=== PATIENT | male | born 1955 | race Caucasian/White ===

== ENCOUNTER 2016-08-03 11:26 | Emergency (ER) | payer OTHER ==
[~2016-08-03] VITALS: Ht 175.3 cm; Wt 90.5 kg
[~2016-08-03 11:26] MED LIST: CLON.5 PO; METH10 PO
[2016-08-03] MEDS ORDERED: NALOXONE HCL 1 MG/ML 2 ML SYG IVP ONE (11:45)
[2016-08-03] MEDS ORDERED: DEXTROSE 50%-WATER 25 GM/50 ML SYRINGE IVP ONE ×2 (11:45→13:15)
[2016-08-03] MEDS ORDERED: SODIUM CHLORIDE 0.9% 1,000 ML IV ONE (11:45)
[2016-08-03 13:12] LABS: GLUCOSE,POINT OF CARE 68 MG/DL (70-110)
[2016-08-03] MEDS ORDERED: DEXTROSE 5%-0.45% SODIUM CHL 1,000 ML IV ONE (13:15)
[2016-08-03 13:37] LABS: GLUCOSE,POINT OF CARE 133 MG/DL (70-110)
[2016-08-03 15:12] LABS: GLUCOSE,POINT OF CARE 116 MG/DL (70-110)
[2016-08-03 15:57] LABS: BASOPHILS # (AUTO) 0.02 K/uL (0.00-0.20); BASOPHILS % (AUTO) 0.2 % (0.0-2.0); EOSINOPHILS # (AUTO) 0.07 K/uL (0.00-0.70); EOSINOPHILS % (AUTO) 0.79 % (1.0-6.0); HEMOGLOBIN 13.7 g/dL (13.5-17.5); LYMPHOCYTES # (AUTO) 0.8 K/uL (1.0-4.8); MEAN CORPUSCULAR HGB CONC 34.2 G/dL (31.0-37.0); MEAN CORPUSCULAR VOLUME 91 fL (80-100); MONOCYTES # (AUTO) 0.4 K/uL (0.1-1.0); MONOCYTES % (AUTO) 4.3 % (2.0-9.0); NEUTROPHILS % (AUTO) 84.8 % (40.0-70.0); PLATELET COUNT (AUTO) 237 K/uL (150-450); RED CELL DISTRIBUTION WIDTH 12.8 % (11.5-14.5); WHITE BLOOD COUNT (AUTO) 8.3 K/uL (4.5-11.0)
[2016-08-03 16:08] LABS: ANION GAP 10 mmol/L (8-16); CALCIUM, TOTAL 8.5 mg/dL (8.8-10.5); CARBON DIOXIDE 28 mmol/L (22-29); CHLORIDE 105 mmol/L (98-107); CREATININE 1.06 mg/dL (0.60-1.30); GLOMERULAR FILTR. RATE CALC > 60 mL/min (>60); POTASSIUM 3.1 mmol/L (3.5-5.1); SODIUM SERUM 143 mmol/L (136-145); UREA NITROGEN, BLOOD 16 mg/dL (7-18)
[2016-08-03 16:11] LABS: SALICYLATE < 2.8 mg/dL (2.8-20.0)
[2016-08-03 16:24] LABS: ACETAMINOPHEN < 2 mcg/mL (10-30)
[2016-08-03 17:25] VITALS: BP 133/74
[2016-08-03 17:41] LABS: GLUCOSE COMMENT 1 Doctor Notified; GLUCOSE,POINT OF CARE 75 MG/DL (70-110)
== END 2016-08-03 18:07 | disposition home or self-care (01) ==
LOC: EMS 11:28
DX: R41.82 Altered mental status, unspecified (principal); F11.10 Opioid abuse, uncomplicated; F15.10 Other stimulant abuse, uncomplicated; F41.9 Anxiety disorder, unspecified; I10 Essential (primary) hypertension; F10.20 Alcohol dependence, uncomplicated; Y90.9 Presence of alcohol in blood, level not specified; Z59.0 Homelessness; Z86.19 Personal history of other infectious and parasitic diseases; Z79.899 Other long term (current) drug therapy
CPT/HCPCS: 36415; 80048; 80307; 82962; 85025; 93005; 96361; 96374; 96375; 96376; 99285; G0480 ×2; G0481; J2310; J7030; X7700

== ENCOUNTER 2019-04-05 05:16 | Inpatient (IN) | payer MEDICARE, OTHER ==
[~2019-04-05] VITALS: Ht 170.2 cm; Wt 73.5 kg
[2019-04-05 05:51] LABS: GLUCOSE,POINT OF CARE 72 MG/DL (70-110)
[2019-04-05 06:30] LABS: AMPHET/METH SCREEN,URINE NEGATIVE (NEGATIVE); BARBITURATE SCREEN, URINE NEGATIVE (NEGATIVE); BENZODIAZEPINES SCREEN,URINE NEGATIVE (NEGATIVE); CANNABINOID SCREEN,URINE NEGATIVE (NEGATIVE); COCAINE SCREEN,URINE NEGATIVE (NEGATIVE); METHADONE SCREEN, URINE POSITIVE (NEGATIVE); OPIATE SCREEN,URINE NEGATIVE (NEGATIVE); PHENCYCLIDINE SCREEN,URINE NEGATIVE (NEGATIVE)
[2019-04-05 06:37] LABS: BASOPHILS % (AUTO) 0.9 % (0.0-2.0); EOSINOPHILS % (AUTO) 3.1 % (1.0-6.0); HEMATOCRIT 40.9 % (41-53); HEMOGLOBIN 13.8 g/dL (13.5-17.5); LYMPHOCYTES # (AUTO) 0.9 K/uL (1.0-4.8); LYMPHOCYTES % (AUTO) 14.7 % (22.0-44.0); MEAN CORPUSCULAR HEMOGLOBIN 31.1 pg (26.0-34.0); MEAN CORPUSCULAR HGB CONC 33.6 G/dL (31.0-37.0); MEAN CORPUSCULAR VOLUME 93 fL (80-100); MONOCYTES # (AUTO) 0.5 K/uL (0.1-1.0); NEUTROPHILS # (AUTO) 4.6 K/uL (1.8-7.7); NEUTROPHILS % (AUTO) 73.3 % (40.0-70.0); PLATELET COUNT (AUTO) 314 K/uL (150-450); RED BLOOD CELL COUNT(AUTO) 4.43 MIL/uL (4.50-5.90); RED CELL DISTRIBUTION WIDTH 13.6 % (11.5-14.5)
[2019-04-05 06:50] LABS: ANION GAP 2 mmol/L (8-16); CALCIUM, TOTAL 8.9 mg/dL (8.8-10.5); CARBON DIOXIDE 33 mmol/L (22-29); CHLORIDE 103 mmol/L (98-107); CREATININE 0.83 mg/dL (0.60-1.30); GLOMERULAR FILTR. RATE CALC > 60 mL/min (>60); GLUCOSE,RANDOM 107 mg/dL (70-110); POTASSIUM 4.4 mmol/L (3.5-5.1); SODIUM SERUM 138 mmol/L (136-145); UREA NITROGEN, BLOOD 18 mg/dL (7-18)
[2019-04-05 06:55] LABS: ALANINE AMINOTRANSFERASE 44 U/L (12-78); ALBUMIN 3.5 g/dL (3.4-5.0); ALKALINE PHOSPHATASE 128 U/L (46-116); ASPARTATE AMINOTRANSFERASE 48 U/L (15-37); BILIRUBIN,TOTAL 0.3 mg/dL (0.1-1.0); TOTAL PROTEIN, SERUM 8.1 g/dL (6.4-8.2)
[2019-04-05] MEDS ORDERED: ONDANSETRON HCL 4 MG/2 ML VIAL IVP PRN ×2 (09:30→20:00)
[2019-04-05] MEDS ORDERED: ACETAMINOPHEN 325 MG TABLET PO PRN ×2 (09:30→20:00)
[2019-04-05 15:41] VITALS: BP 137/74
[2019-04-05 19:56] VITALS: BP 139/67
[2019-04-05] MEDS ORDERED: ZOLPIDEM TARTRATE 5 MG TABLET PO PRN (20:00)
[2019-04-05] MEDS ORDERED: MAGNESIUM HYDROXIDE SUSPENSION 30 ML UDCUP PO PRN (20:00)
[2019-04-05] MEDS ORDERED: MORPHINE SULFATE 2 MG/ML SYRINGE IVP PRN (20:00)
[2019-04-05] MEDS ORDERED: HYDROCODONE/ACETAMINOPHEN 5-325 MG TABLET PO PRN (20:00)
[2019-04-05] MEDS ORDERED: BISACODYL 10 MG RECTAL RECTAL SUPPOSITORY PR PRN (20:00)
[2019-04-05] MEDS ORDERED: SODIUM CHLORIDE 0.9% 500 ML IV ONE (20:11)
[2019-04-05] MEDS: DOCUSATE SODIUM 100 MG CAPSULE PO SCH (20:35)
[2019-04-05] MEDS: TAMSULOSIN HCL 0.4 MG CAPSULE PO SCH (20:36)
[2019-04-05] MEDS: HEPARIN SODIUM,PORCINE 5,000 UNITS/ML VIAL SQ SCH (23:38)
[2019-04-05 23:54] LABS: APPEARANCE,URINE CLOUDY (CLEAR); BILIRUBIN,URINE NEGATIVE (NEGATIVE); GLUCOSE, URINE (UA) NEGATIVE (NEGATIVE); KETONES,URINE NEGATIVE (NEGATIVE); LEUKOCYTE ESTERASE ,URINE NEGATIVE (NEGATIVE); NITRATE,URINE NEGATIVE (NEGATIVE); OCCULT BLOOD,URINE NEGATIVE (NEGATIVE); PROTEIN,URINE NEGATIVE (NEGATIVE)
[2019-04-05 23:58] LABS: AMORPHOUS SEDIMENT,UR Many /LPF (None Seen); BACTERIA,URINE None Seen /HPF (None Seen); RBC,URINE None Seen /HPF (0-2); SQUAMOUS EPITHELIAL CELL,UR None Seen /LPF (None Seen); TRIPLE PHOSPHATE CRYSTAL,UR Many /LPF (None Seen); WBC,URINE 0-2 /HPF (0-5)
[2019-04-06] VITALS (7 sets, daily range): BP systolic 123–148; BP diastolic 70–97
[2019-04-06] MEDS: DOCUSATE SODIUM 100 MG CAPSULE PO SCH ×2 (08:35→20:19)
[2019-04-06] MEDS: HEPARIN SODIUM,PORCINE 5,000 UNITS/ML VIAL SQ SCH ×2 (08:35→17:35)
[2019-04-06] MEDS: PANTOPRAZOLE SODIUM 40 MG DR TABLET PO SCH (08:35)
[2019-04-06] MEDS: TAMSULOSIN HCL 0.4 MG CAPSULE PO SCH ×2 (08:35→20:19)
[2019-04-06] MEDS: METHADONE HCL 10 MG TABLET PO SCH (13:08)
[2019-04-07] MEDS: HEPARIN SODIUM,PORCINE 5,000 UNITS/ML VIAL SQ SCH ×4 (00:03→23:23)
[2019-04-07 05:10] VITALS: BP 130/75
[2019-04-07 07:50] VITALS: BP_SYST 125; BP_SYST 141; BP_DIAS 80; BP_DIAS 89
[2019-04-07] MEDS: TAMSULOSIN HCL 0.4 MG CAPSULE PO SCH ×2 (08:31→20:08)
[2019-04-07] MEDS: PANTOPRAZOLE SODIUM 40 MG DR TABLET PO SCH (08:31)
[2019-04-07] MEDS: DOCUSATE SODIUM 100 MG CAPSULE PO SCH ×2 (08:33→20:09)
[2019-04-07] MEDS: METHADONE HCL 10 MG TABLET PO SCH (08:33)
[2019-04-07 11:01] VITALS: BP 131/70
[2019-04-07] MEDS ORDERED: TAMS-13 PO (12:17)
[2019-04-07 15:10] VITALS: BP 103/61
[2019-04-07 19:51] VITALS: BP 110/76
[2019-04-07 23:28] VITALS: BP 126/78
[2019-04-08 04:52] VITALS: BP 129/77
[2019-04-08 07:28] VITALS: BP 126/78
[2019-04-08] MEDS: TAMSULOSIN HCL 0.4 MG CAPSULE PO SCH ×2 (07:59→20:14)
[2019-04-08] MEDS: PANTOPRAZOLE SODIUM 40 MG DR TABLET PO SCH (07:59)
[2019-04-08] MEDS: HEPARIN SODIUM,PORCINE 5,000 UNITS/ML VIAL SQ SCH ×3 (08:00→23:38)
[2019-04-08] MEDS: DOCUSATE SODIUM 100 MG CAPSULE PO SCH ×2 (08:00→20:16)
[2019-04-08] MEDS: METHADONE HCL 10 MG TABLET PO SCH (08:01)
[2019-04-08 11:54] VITALS: BP 124/79
[2019-04-08 20:00] VITALS: BP 128/69
[2019-04-08 23:39] VITALS: BP 128/76
[2019-04-09 05:16] VITALS: BP 123/74
[2019-04-09 05:38] LABS: BASOPHILS % (AUTO) 0.7 % (0.0-2.0); EOSINOPHILS % (AUTO) 4.1 % (1.0-6.0); HEMATOCRIT 35.6 % (41-53); HEMOGLOBIN 11.8 g/dL (13.5-17.5); LYMPHOCYTES # (AUTO) 1.4 K/uL (1.0-4.8); LYMPHOCYTES % (AUTO) 35.4 % (22.0-44.0); MEAN CORPUSCULAR HEMOGLOBIN 30.4 pg (26.0-34.0); MEAN CORPUSCULAR HGB CONC 33.1 G/dL (31.0-37.0); MEAN CORPUSCULAR VOLUME 92 fL (80-100); MONOCYTES # (AUTO) 0.4 K/uL (0.1-1.0); MONOCYTES % (AUTO) 10.4 % (2.0-9.0); NEUTROPHILS # (AUTO) 1.9 K/uL (1.8-7.7); NEUTROPHILS % (AUTO) 49.4 % (40.0-70.0); PLATELET COUNT (AUTO) 232 K/uL (150-450); RED BLOOD CELL COUNT(AUTO) 3.88 MIL/uL (4.50-5.90); RED CELL DISTRIBUTION WIDTH 13.8 % (11.5-14.5)
[2019-04-09 06:15] LABS: ANION GAP 5 mmol/L (8-16); CALCIUM, TOTAL 8.6 mg/dL (8.8-10.5); CARBON DIOXIDE 30 mmol/L (22-29); CHLORIDE 105 mmol/L (98-107); GLOMERULAR FILTR. RATE CALC > 60 mL/min (>60); GLUCOSE,RANDOM 84 mg/dL (70-110); POTASSIUM 4.6 mmol/L (3.5-5.1); SODIUM SERUM 140 mmol/L (136-145); UREA NITROGEN, BLOOD 23 mg/dL (7-18)
[2019-04-09 07:35] VITALS: BP 130/68
[2019-04-09] MEDS: TAMSULOSIN HCL 0.4 MG CAPSULE PO SCH (07:58)
[2019-04-09] MEDS: DOCUSATE SODIUM 100 MG CAPSULE PO SCH (07:58)
[2019-04-09] MEDS: HEPARIN SODIUM,PORCINE 5,000 UNITS/ML VIAL SQ SCH ×2 (07:58→16:14)
[2019-04-09] MEDS: PANTOPRAZOLE SODIUM 40 MG DR TABLET PO SCH (07:58)
[2019-04-09] MEDS: METHADONE HCL 10 MG TABLET PO SCH (07:58)
[2019-04-09 12:11] VITALS: BP 121/60
[2019-04-09 15:56] VITALS: BP 110/70
== END 2019-04-09 19:00 | DRG 696 ==
LOC: EMS 05:18 → 4E 14:51
PROVIDERS: ADMIT Hospitalist; ATTEND Hospitalist
DX: R33.9 Retention of urine, unspecified (principal); F11.20 Opioid dependence, uncomplicated; G93.40 Encephalopathy, unspecified; B19.20 Unspecified viral hepatitis C without hepatic coma; F19.10 Other psychoactive substance abuse, uncomplicated; F17.210 Nicotine dependence, cigarettes, uncomplicated; F10.10 Alcohol abuse, uncomplicated; F29 Unspecified psychosis not due to a substance or known physiological condition; I10 Essential (primary) hypertension; F41.9 Anxiety disorder, unspecified; Z59.0 Homelessness; Z79.899 Other long term (current) drug therapy
CPT/HCPCS: 51702; 70450; 74176; 76770; 84153; 93005; 97163; 97165; 97535; G0378; G0480; J1644; J2270; J7040

== ENCOUNTER 2019-06-10 16:34 | Emergency (ER) | payer MEDICARE, OTHER ==
[~2019-06-10] VITALS: Ht 172.7 cm; Wt 77.3 kg
[~2019-06-10 16:34] MED LIST changes: -CLON.5 PO; +TAMS-13 PO
[2019-06-10] MEDS ORDERED: BUPRENORPHINE HCL/NALOXONE HCL 8-2 MG SUBLINGUAL TABLET SL ONE ×2 (17:45→18:45)
[2019-06-10] MEDS ORDERED: LORazepam 2 MG TABLET PO ONE (20:00)
[2019-06-10 21:35] VITALS: BP 171/100
== END 2019-06-10 21:48 | disposition home or self-care (01) ==
LOC: EMS 16:40
DX: F11.23 Opioid dependence with withdrawal (principal); M79.10 Myalgia, unspecified site; R19.7 Diarrhea, unspecified; F17.210 Nicotine dependence, cigarettes, uncomplicated; F41.9 Anxiety disorder, unspecified; I10 Essential (primary) hypertension; Z59.0 Homelessness